=== PATIENT | male | born 2005 | race Caucasian/White ===

== ENCOUNTER 2024-10-19 15:40 | Emergency (ER) | payer MEDICAID ==
[~2024-10-19] VITALS: Ht 177.8 cm; Wt 72.0 kg
[2024-10-19 15:42] VITALS: O2SAT 97
[2024-10-19 16:30] VITALS: BP 125/78; PULSE 84; RESP 18; TEMP 99.4; O2SAT 98
== END 2024-10-19 23:23 | disposition left against medical advice (07) ==
LOC: ER 15:40
DX: R42 Dizziness and giddiness (principal); R05.9 Cough, unspecified; R50.9 Fever, unspecified; Z53.21 Procedure and treatment not carried out due to patient leaving prior to being seen by health care provider

== ENCOUNTER 2025-07-15 10:00 | Emergency (ER) | payer MEDICAID ==
[~2025-07-15] VITALS: Ht 175.3 cm; Wt 73.0 kg
[2025-07-15 10:09] VITALS: O2SAT 94
[2025-07-15 10:45] LABS: CLARITY URINE CLEAR (CLEAR); COLOR URINE YELLOW (YELLOW); GLUCOSE URINE NEGATIVE (NEGATIVE); KETONES URINE 1+ (NEGATIVE); LEUKOCYTE ESTERASE URINE NEGATIVE (NEGATIVE); NITRITE URINE NEGATIVE (NEGATIVE); OCCULT BLOOD URINE 2+ (NEGATIVE); PH URINE 5.5 (4.5-8.0); PROTEIN URINE 1+ (NEGATIVE); SPECIFIC GRAVITY URINE 1.021 (1.005-1.030); UROBILINOGEN URINE 1.0 E.U./dL (0.2-1.0)
[2025-07-15] MEDS: IBUPROFEN 600MG TABLET PO ONE (11:14)
[2025-07-15 11:47] LABS: BASOPHILS % 0.4 % (0.0-2.0); EOSINOPHILS % 0.2 % (0.0-5.0); HEMATOCRIT. 45.2 % (42.0-52.0); HEMOGLOBIN. 14.7 g/dL (14.0-18.0); LYMPHOCYTES % 12.9 % (20.0-50.0); MEAN PLATELET VOLUME 9.7 fl (7.4-10.4); MONOCYTES % 13.4 % (2.0-8.0); NEUTROPHILS % 73.1 % (40.0-76.0); PLATELET 142 x1000/uL (130-400); RED BLOOD CELL COUNT 5.11 mill/uL (4.7-6.1); RED CELL DISTRIBUTION WIDTH 13.4 % (11.6-14.6)
[2025-07-15 12:02] LABS: MUCUS URINE 2+ /lpf (NONE/TRACE)
[2025-07-15 12:04] LABS: FINE GRANULAR CASTS URINE 0-5 /lpf
[2025-07-15 12:05] LABS: BACTERIA URINE NONE SEEN; SQUAMOUS EPITHELIAL CELL URINE 1+ /lpf (RARE/1+); WBC URINE 0-2 /hpf (0-2)
[2025-07-15] MEDS: ACETAMINOPHEN 325MG TABLET PO ONE (12:06)
[2025-07-15 12:09] LABS: ASPARTATE AMINOTRANSFERASE 25 IU/L (<34); BILIRUBIN DIRECT 0.3 mg/dL (<=3.0); BILIRUBIN TOTAL 0.7 mg/dL (0.1-1.0); PROTEIN TOTAL 7.4 g/dL (6.0-8.3)
[2025-07-15 12:12] LABS: INFLUENZA TYPE A Presumptive Negative (Pres. Neg.); INFLUENZA TYPE B Presumptive Negative (Pres. Neg.)
[2025-07-15 12:46] LABS: CREATININE 0.8 mg/dL (0.6-1.3); UREA NITROGEN BLOOD 6 mg/dL (9-23)
[2025-07-15 12:48] VITALS: BP 114/78; PULSE 98; RESP 18; TEMP 37.4; O2SAT 97
== END 2025-07-15 13:24 | disposition home or self-care (01) ==
LOC: ER 10:00
DX: B34.9 Viral infection, unspecified (principal); R31.29 Other microscopic hematuria; R74.01 Elevation of levels of liver transaminase levels; Z20.822 Contact with and (suspected) exposure to COVID-19
CPT/HCPCS: 36415; 71045; 80048; 80076; 81003; 83605; 85025; 87426; 87804; 99284